=== PATIENT | male | born 1970 | race African-American/Black ===

== ENCOUNTER 2021-06-09 15:42 | Inpatient (IN) | payer OTHER ==
[~2021-06-09] VITALS: Ht 170.2 cm; Wt 72.1 kg
[2021-06-09] MEDS ORDERED: SERT20OR PO (15:49)
[2021-06-09] MEDS ORDERED: ONDANSETRON HCL 4MG/2ML INJ IV STA (16:14)
[2021-06-09] MEDS ORDERED: SODIUM CHLORIDE 0.9% 1,000 ML IV ONE (16:15)
[2021-06-09 17:35] LABS: CHLORIDE 124 mEq/L (98-107)
[2021-06-09 17:39] LABS: ETHANOL BLOOD 54 mg/dL
[2021-06-09 17:42] LABS: BETA HYDROXYBUTYRATE 0.1 mMol/L (0.0-0.3)
[2021-06-09] MEDS ORDERED: DEXTROSE 50% WATER 50ML SYRINGE IV NR (18:15)
[2021-06-09] MEDS ORDERED: CALCIUM GLUCONATE 1,000 MG in DEXT 5% WATER 100 ML IV ONE (18:15)
[2021-06-09] MEDS ORDERED: CALCIUM GLUCONATE 1GM PREMIX 50 ML IV NR (18:15)
[2021-06-09] MEDS ORDERED: SODIUM CHLORIDE 0.9% 1,000 ML IV NR (18:15)
[2021-06-09 18:44] LABS: BASOPHILS % 0.3 % (0.0-2.0); EOSINOPHILS % 0.1 % (0.0-5.0); HEMATOCRIT. 41.7 % (42.0-52.0); HEMOGLOBIN. 14.3 g/dL (14.0-18.0); LYMPHOCYTES % 7.1 % (20.0-50.0); MEAN CORPUSCULAR HEMOGLOBIN 30.9 pg (28.0-32.0); MEAN CORPUSCULAR VOLUME 90.1 fL (80.0-94.0); MEAN PLATELET VOLUME 7.2 fl (7.4-10.4); MONOCYTES % 6.6 % (2.0-8.0); NEUTROPHILS % 85.9 % (40.0-76.0); PLATELET 248 x1000/uL (130-400); RED BLOOD CELL COUNT 4.62 mill/uL (4.7-6.1); RED CELL DISTRIBUTION WIDTH 13.6 % (11.6-14.6)
[2021-06-10] MEDS ORDERED: SERT-112 PO (03:45)
[2021-06-10 03:48] VITALS: BP 133/89
[2021-06-10 08:00] VITALS: BP 137/80
[2021-06-10] MEDS: ONDANSETRON HCL 4MG/2ML INJ IV PRN ×2 (08:42→16:44)
[2021-06-10] MEDS: SERTRALINE HCL 100MG TABLET PO SCH (08:42)
[2021-06-10 09:02] LABS: BASOPHILS % 0.2 % (0.0-2.0); EOSINOPHILS % 1.1 % (0.0-5.0); HEMATOCRIT. 44.5 % (42.0-52.0); HEMOGLOBIN. 15.2 g/dL (14.0-18.0); LYMPHOCYTES % 9.1 % (20.0-50.0); MEAN CORPUSCULAR HEMOGLOBIN 30.9 pg (28.0-32.0); MEAN CORPUSCULAR VOLUME 90.2 fL (80.0-94.0); MEAN PLATELET VOLUME 7.3 fl (7.4-10.4); MONOCYTES % 8.4 % (2.0-8.0); NEUTROPHILS % 81.2 % (40.0-76.0); PLATELET 244 x1000/uL (130-400); RED BLOOD CELL COUNT 4.94 mill/uL (4.7-6.1); RED CELL DISTRIBUTION WIDTH 13.7 % (11.6-14.6)
[2021-06-10 09:33] LABS: CHLORIDE 108 mEq/L (98-107)
[2021-06-10 09:44] LABS: LDL CHOLESTEROL 105 mg/dL (5-100)
[2021-06-10 09:48] LABS: HDL CHOLESTEROL 45 mg/dL (40-59)
[2021-06-10 12:00] VITALS: BP 136/70
[2021-06-10] MEDS ORDERED: MORPHINE SULFATE 2 MG/ML CPJ (NOT FOR IM USE) IV SCH (12:00)
[2021-06-10 16:00] VITALS: BP 129/82
[2021-06-10] MEDS ORDERED: DEXT 5%/0.45% NACL 1000ML 1,000 ML IV ONE (16:00)
[2021-06-10] MEDS: ACETAMINOPHEN 325MG TABLET PO PRN (16:44)
[2021-06-10 19:34] LABS: *COCAINE SCREEN URINE NEGATIVE (NEGATIVE); METHADONE URINE SCREEN NEGATIVE (NEGATIVE); OPIATES URINE SCREEN NEGATIVE (NEGATIVE)
[2021-06-10 19:35] LABS: *AMPHETAMINES SCREEN URINE NEGATIVE (NEGATIVE); *BARBITURATES SCREEN URINE NEGATIVE (NEGATIVE); *BENZODIAZEPINES SCREEN URINE NEGATIVE (NEGATIVE); CANNABINOID URINE SCREEN PRESUMTIVE POSITIVE (NEGATIVE); PHENCYCLIDINE URINE SCREEN NEGATIVE (NEGATIVE)
[2021-06-10 20:00] VITALS: BP 118/81
[2021-06-11] VITALS: BP 117/71
[2021-06-11] MEDS: ACETAMINOPHEN 325MG TABLET PO PRN ×2 (00:03→18:00)
[2021-06-11 04:00] VITALS: BP 116/66
[2021-06-11 08:00] VITALS: BP 133/73
[2021-06-11] MEDS: SERTRALINE HCL 100MG TABLET PO SCH (08:39)
[2021-06-11] MEDS: ONDANSETRON HCL 4MG/2ML INJ IV PRN ×2 (11:06→19:56)
[2021-06-11 12:00] VITALS: BP 142/89
[2021-06-11 16:00] VITALS: BP 129/91
[2021-06-11 20:00] VITALS: BP 137/92
[2021-06-11] MEDS ORDERED: ZOLPIDEM TARTRATE 5MG TABLET PO PRN (21:00)
[2021-06-12] VITALS: BP 132/80
[2021-06-12 04:00] VITALS: BP 129/87
[2021-06-12 08:00] VITALS: BP 121/78
[2021-06-12] MEDS: SERTRALINE HCL 100MG TABLET PO SCH (08:08)
[2021-06-12 08:51] VITALS: BP 121/78
== END 2021-06-12 11:20 | disposition home or self-care (01) | DRG 426 ==
LOC: ER 15:42 → MICUSO 20:00 → EDBEDREQTM 20:06 → EDBEDREQ 20:06 → 5WST 06-10 02:40
PROVIDERS: ADMIT Internal Medicine; ATTEND Internal Medicine
DX: E87.0 Hyperosmolality and hypernatremia (principal); E43 Unspecified severe protein-calorie malnutrition; E87.2 Acidosis; E83.51 Hypocalcemia; E87.8 Other disorders of electrolyte and fluid balance, not elsewhere classified; E16.2 Hypoglycemia, unspecified; Z20.822 Contact with and (suspected) exposure to COVID-19; F10.129 Alcohol abuse with intoxication, unspecified; Z68.24 Body mass index [BMI] 24.0-24.9, adult; Z79.899 Other long term (current) drug therapy; Z71.41 Alcohol abuse counseling and surveillance of alcoholic
CPT/HCPCS: 36415; 71045; 80048; 80053; 80061; 80305; 80320; 82010; 82962; 83036; 83605; 83880; 84484; 85025; 85379; 87426; 93005; 99291; J0610; J2270; J2405; J7030; G0480